=== PATIENT | female | born 1980 | race Caucasian/White ===

== ENCOUNTER 2019-02-21 19:53 | Emergency (ER) | payer SELFPAY ==
[2019-02-21 20:05] VITALS: TEMP 98.3; O2SAT 100
[2019-02-21] MEDS ORDERED: Sodium Chloride 0.9% 1,000 ML IV STA (21:40)
[2019-02-21 22:17] LABS: BASO % 0.3 % (0.0-2.0); EOS % 0.6 % (0.0-4.0); HEMOGLOBIN 13.2 g/dL (12.0-16.0); LYMPH # 2.7 K/uL (1.0-4.3); LYMPH % 34.1 % (20.0-40.0); MEAN CELL VOLUME 90.3 fl (81.0-99.0); MEAN CORPUSCULAR HEMOGLOBIN 30.9 pg (27.0-31.0); MEAN CORPUSCULAR HGB CONC 34.2 g/dL (33.0-37.0); MONO # 0.6 K/uL (0.0-0.8); MONO % 7.2 % (0.0-10.0); NEUT # 4.6 K/uL (1.8-7.0); NEUT % 57.8 % (50.0-75.0); NRBC % 0.1 % (0.0-0.0); RBC 4.27 Mil/uL (3.80-5.20); RED CELL DISTRIBUTION WIDTH 12.6 % (11.5-14.5)
[2019-02-21 22:32] LABS: ALB/GLOB RATIO 1.4 (1.0-2.1); ALBUMIN 4.6 g/dL (3.5-5.0); ALT/SGPT 29 U/L (9-52); AST/SGOT 27 U/L (14-36); BLOOD UREA NITROGEN 12 mg/dl (7-17); CALCIUM 9.2 mg/dL (8.4-10.2); GFR NON-AFRICAN AMERICAN > 60
--- NOTE | 2019-02-21 23:49 | ED PDOC ---
HPI: Headache Time Seen by Provider: 02/21/19 20:23 Chief Complaint (Nursing): Palpitations Chief Complaint (Provider): headache, palpitations, neck pain History Per: Patient Additional Complaint(s): 39 y/o F with hx of anxiety and depression who presents with headache, left sided neck pain and palpitations. Patient states that she woke up with palpitations this morning and has been feeling very anxious over the past couple of weeks. This afternoon, she had an episode of sudden chest pressure with pain down her left arm and shortness of breath. She took her anxiety medication (?Ativan) and felt resolution of chest and arm pain. Currently, having headache with left neck pain that began around 3pm this afternoon when she got out of work. + photophobia. No dizziness, visual changes, gait or speech disturbance. Past Medical History Reviewed: Historical Data, Nursing Documentation, Vital Signs Vital Signs: Last Vital Signs Temp 98.3 F 02/21/19 20:00 Pulse 88 02/21/19 21:10 Resp 19 02/21/19 20:00 BP 141/83 02/21/19 21:10 Pulse Ox 100 02/21/19 20:00 - Medical History PMH: Anxiety, Seizures Denies: Chronic Kidney Disease - Surgical History Surgical History: Appendectomy - Family History Family History: States: Unknown Family Hx - Immunization History Hx Tetanus Toxoid Vaccination: No Hx Influenza Vaccination: No Hx Pneumococcal Vaccination: No - Home Medications Home Medications: Ambulatory Orders Medication Instructions Recorded Dicyclomine [Bentyl] 10 mg PO TID #30 tab 12/14/15 Famotidine [Pepcid] 20 mg PO BID #10 tab 12/14/15 Phenytoin, Extended [Dilantin 100 mg PO BID 12/14/15 Kapseals] Acetaminophen/Butalbital/Caf 1 tab PO Q4 PRN #28 tab 02/22/19 [Fioricet] Ibuprofen [Motrin Tab] 600 mg PO Q6 PRN 7 Days tab 02/22/19 - Allergies Allergies/Adverse Reactions: Allergies Allergy/AdvReac Type Severity Reaction Status Date / Time No Known Allergies Allergy Verified 02/21/19 19:57 Physical Exam - Reviewed Nursing Documentation Reviewed: Yes Vital Signs Reviewed: Yes - Physical Exam Appears: Positive for: Uncomfortable Head Exam: Positive for: ATRAUMATIC Skin: Positive for: Normal Color Eye Exam: Positive for: Normal appearance, EOMI, PERRL ENT: Positive for: Normal ENT Inspection Neck: Positive for: Painless ROM (mild tenderness on palpation of left neck. ) Cardiovascular/Chest: Positive for: Regular Rate, Rhythm Respiratory: Positive for: Normal Breath Sounds Neurological/Psych: Positive for: Awake, Alert, Oriented, Gait (normal, able to walk heel to toe), Cerebellar Tests (normal Romberg), Motor/Sensory Deficits (sensation to light touch intact in B/L upper and lower extremities. 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 ). Negative for: Lethargic, Facial Droop - Laboratory Results Result Diagrams: 02/21/19 22:08 02/21/19 22:08 Lab Results: Total Bilirubin 0.4 mg/dl (0.2-1.3) 02/21/19 22:08 AST 27 U/L (14-36) 02/21/19 22:08 ALT 29 U/L (9-52) 02/21/19 22:08 Alkaline Phosphatase 69 U/L (38-126) 02/21/19 22:08 Total Protein 7.8 G/DL (6.3-8.2) 02/21/19 22:08 Albumin 4.6 g/dL (3.5-5.0) 02/21/19 22:08 Globulin 3.3 gm/dL (2.2-3.9) 02/21/19 22:08 Albumin/Globulin Ratio 1.4 (1.0-2.1) 02/21/19 22:08 - ECG O2 Sat by Pulse Oximetry: 100 Medical Decision Making Medical Decision Making: NS 1L IV x 1 Reglan 10mg IV x 1 Toradol 30mg IV x 1 EKG Telemetry EKG: sinus, HR 83, no ischemic change or arrhythmia. Telemetry: no arrhythmia noted. 12:30am: Headache and neck pain have resolved and patient feeling much better. Patient advised to f/u with PMD for treatment of standing treatment of anxiety and for routine care. Stable for d/c home with return instructions given. Disposition - Clinical Impression Clinical Impression: Anxiety, Migraine - Patient ED Disposition Is Patient to be Admitted: No Counseled Patient/Family Regarding: Diagnosis, Need For Followup - Disposition Disposition: Routine/Home Disposition Time: 01:00 Condition: STABLE Additional Instructions: Follow up with your primary care doctor early next week to discuss your anxiety as you may need daily medications to help control it. Return to ER if your headache worsens or if you develop trouble speaking or walking or worsening symptoms overall. Take Fioricet or Ibuprofen for headache. Prescriptions: Acetaminophen/Butalbital/Caf [Fioricet] 1 tab PO Q4 PRN #28 tab PRN Reason: Migraine Headache Ibuprofen [Motrin Tab] 600 mg PO Q6 PRN 7 Days tab PRN Reason: Pain, Moderate (4-7) Instructions: Migraine Headache (DC), Anxiety, Adult (DC) Forms: [facility] (Albanian) Print Language: AZERI
[2019-02-22 01:11] VITALS: BP 117/67; PULSE 90; RESP 18
--- NOTE | 2019-02-22 15:10 | CARD ---
APPROVED REPORT Date of service: 02/21/2019 EKG Measurement Heart [id number] <Conclusion> Normal sinus rhythm Normal Electrocardiogram
== END 2019-02-22 01:00 | disposition home or self-care (01) ==
LOC: H.ER 19:53
DX: F41.9 Anxiety disorder, unspecified (principal); G43.909 Migraine, unspecified, not intractable, without status migrainosus
CPT/HCPCS: 80053; 81025; 85025; 93005; 96361; 96374; 96375; 99284; J1885; J2765; J7030